=== PATIENT | female | born 1975 | race Caucasian/White ===

== ENCOUNTER → 2019-03-29 | Outpatient (CLI) | payer OTHER ==
[~2019-03-29] MED LIST: BUPR150T6 PO; DICL100G25 TP; DOXY100T PO; HYDR-3240 PO
[2019-03-29 14:58] LABS: MEAN CORPUSCULAR HEMOGLOBIN 38.2 pg (27.0-34.8); MEAN CORPUSCULAR HGB CONC 33.5 g/dL (32.4-35.8); MEAN CORPUSCULAR VOLUME 114.2 fL (80-100); MEAN PLATELET VOLUME 7.3 fL (7.4-10.4); PLATELET COUNT 270 x10^3/uL (130-400); RED BLOOD COUNT 3.65 x10^6/uL (3.82-5.3); RED CELL DISTRIBUTION WIDTH 13.7 % (9.6-15.2)
[2019-03-29 15:07] LABS: CHLORIDE 108 mmol/L (98-107)
[2019-03-29 15:25] LABS: ALANINE AMINOTRANSFERASE 46 U/L (12-78); ALBUMIN 4.3 g/dL (3.4-5.0); ALKALINE PHOSPHATASE 54 U/L (45-117); ANION GAP 5 mmol/L (5-15); BILIRUBIN,TOTAL 0.4 mg/dL (0.2-1.0); CREATININE 1.06 mg/dL (0.55-1.02); TOTAL PROTEIN 7.7 g/dL (6.4-8.2)
[2019-03-29 16:17] LABS: MD YES
[2019-03-29 16:19] LABS: BAND#(MANUAL) 0.07 x10^3/uL; BANDS%(MANUAL) 1 % (0-7); BASOS#(MANUAL) 0.14 x10^3/uL (0-0.1); BASOS% (MANUAL) 2 % (0-1); LYMPH#(MANUAL) 1.87 x10^3/uL (1-3.4); LYMPHS% (MANUAL) 26 % (22-44); MONOS% (MANUAL) 7 % (2-9); SEG#(MANUAL) 4.61 x10^3/uL (1.8-6.8); SEGS% (MANUAL) 64 % (42-75)
[2019-03-29 16:20] LABS: <PLATELET ESTIMATE> ADEQUATE
[2019-03-29 16:21] LABS: SMALL PLATELETS 1+
== END | disposition home or self-care (01) ==
LOC: STAR 13:49
PROVIDERS: ATTEND Surgery
DX: Z01.818 Encounter for other preprocedural examination (principal); F17.200 Nicotine dependence, unspecified, uncomplicated; F12.10 Cannabis abuse, uncomplicated
CPT/HCPCS: 36415; 80053; 85025; 93005

== ENCOUNTER 2019-04-02 13:44 | Day surgery (SDC) | payer OTHER ==
[~2019-04-02] VITALS: Ht 166.4 cm; Wt 74.7 kg
[~2019-04-02 13:44] MED LIST changes: -DOXY100T PO; -HYDR-3240 PO
[2019-04-02] MEDS ORDERED: LACTATED RINGERS 1,000 ML IV SCH (13:53)
[2019-04-02] MEDS ORDERED: PROPOFOL 10 MG/ML, 20ML ONE (14:11)
[2019-04-02] MEDS ORDERED: DEXAMETHASONE 4 MG/ML, 1ML ONE ×2 (14:11)
[2019-04-02] MEDS ORDERED: MIDAZOLAM 1 MG/ML, 2ML ONE (14:11)
[2019-04-02] MEDS ORDERED: ROCURONIUM 10MG/ML,5ML ONE (14:11)
[2019-04-02] MEDS ORDERED: ONDANSETRON 2MG/ML, 2ML ONE (14:11)
[2019-04-02] MEDS ORDERED: CEFAZOLIN 1,000 MG ONE ×2 (14:11)
[2019-04-02] MEDS ORDERED: FENTANYL PF 250 MCG/5ML ONE (14:11)
[2019-04-02 14:51] LABS: HCG UR SG 1.017 (1.003-1.030)
[2019-04-02] MEDS ORDERED: LORazepam 2 MG/ML, 1ML IVPush PRN (15:00)
[2019-04-02] MEDS ORDERED: ACETAMINOPHEN 325 MG TABLET PO PRN ×2 (15:00→20:00)
[2019-04-02] MEDS ORDERED: ONDANSETRON 2MG/ML, 2ML IV PRN ×2 (15:00→20:00)
[2019-04-02] MEDS ORDERED: ALBUTEROL SULFATE 2.5 MG/3 ML NPPB PRN (15:00)
[2019-04-02] MEDS ORDERED: LABETALOL 5MG/ML, 20ML IV PRN (15:00)
[2019-04-02] MEDS ORDERED: MEPERIDINE/PF 25MG/ML,1ML IVPush PRN (15:00)
[2019-04-02] MEDS ORDERED: METOCLOPRAMIDE 5 MG/ML, 2ML IV PRN (15:00)
[2019-04-02] MEDS ORDERED: HYDROmorphone 2 MG/ML, 1ML IVPush PRN (15:00)
[2019-04-02] MEDS ORDERED: hydrALAzine 20 MG/ML, 1ML IV PRN ×2 (15:00→20:00)
[2019-04-02] MEDS ORDERED: ESMOLOL 100 MG/10 ML ONE (15:46)
[2019-04-02] MEDS ORDERED: METOPROLOL 1 MG/ML, 5ML ONE (15:46)
[2019-04-02] MEDS ORDERED: SUGAMMADEX 200 MG/2 ML IVPush ONE (15:46)
[2019-04-02] MEDS ORDERED: OXYcodone 5 MG/5 ML ORAL.SOL UDC ONE (16:35)
[2019-04-02] MEDS ORDERED: FENTANYL PF 100 MCG/2ML ONE (16:35)
[2019-04-02] MEDS ORDERED: BUPIVACAINE/PF 0.5% ONE (16:37)
[2019-04-02] MEDS ORDERED: EPINEPHRINE 1 MG/ML, 1ML ONE (16:37)
[2019-04-02] MEDS: FENTANYL PF 100 MCG/2ML IV PRN ×2 (16:39→16:45)
[2019-04-02] MEDS: OXYcodone 5 MG/5 ML ORAL.SOL UDC PO PRN ×2 (16:43→16:53)
[2019-04-02] MEDS ORDERED: MEPERIDINE/PF 25MG/ML,1ML ONE (16:59)
[2019-04-02] MEDS ORDERED: ACETAMINOPHEN 325 MG TABLET ONE (17:11)
[2019-04-02] MEDS ORDERED: HYDROmorphone 1 MG/ML, 1ML VIAL ONE (17:30)
[2019-04-02 18:23] VITALS: BP 143/91
[2019-04-02] MEDS ORDERED: HYDROcodone/APAP 5/325 TABLET PO PRN (20:00)
[2019-04-02] MEDS ORDERED: ACETAMINOPHEN 650 MG SUPP PR PRN (20:00)
[2019-04-02] MEDS ORDERED: LACTATED RINGERS 500 ML IV PRN (20:00)
[2019-04-02] MEDS ORDERED: morphine SULFATE 10 MG/ML, 1ML IV PRN (20:00)
[2019-04-02] MEDS: SODIUM CHLORIDE FLUSH 10ML SYR IVF SCH (21:00)
[2019-04-02] MEDS: D5%-LACTATED RINGERS 1,000 ML IV SCH (21:04)
[2019-04-02 23:48] VITALS: BP 115/78
[2019-04-03] MEDS: CEFAZOLIN PMX 2GM/50ML 50 ML IVPB SCH ×2 (00:18→07:42)
[2019-04-03] MEDS ORDERED: ENOXAPARIN 40 MG/0.4 ML SQ SCH (00:30)
[2019-04-03 02:16] VITALS: BP 112/79
[2019-04-03] MEDS: D5%-LACTATED RINGERS 1,000 ML IV SCH (07:20)
[2019-04-03 07:31] VITALS: BP 117/79
[2019-04-03] MEDS: SODIUM CHLORIDE FLUSH 10ML SYR IVF SCH (07:50)
[2019-04-03] MEDS ORDERED: BUPROPION XL 150 MG TAB HOMEMEDPO SCH (09:00)
[2019-04-03] MEDS ORDERED: HYDR-3240 PO (09:13)
[2019-04-03] MEDS ORDERED: DOXY100T PO (09:13)
[2019-04-03 10:03] VITALS: BP 145/87
== END 2019-04-03 10:29 | disposition home or self-care (01) ==
LOC: OR 13:44 → 4NE 18:15 → OR 18:28 → 4NE 18:29 → UNDOADMIN 18:29 → DCLOUNGE 04-03 10:17 → 4NE 04-03 10:17 → OR 04-03 10:29 → UNDODISIN 04-03 10:29
PROVIDERS: ATTEND Surgery
DX: T85.79XA Infection and inflammatory reaction due to other internal prosthetic devices, implants and grafts, initial encounter (principal); L02.211 Cutaneous abscess of abdominal wall; J45.909 Unspecified asthma, uncomplicated; F32.9 Major depressive disorder, single episode, unspecified; Z88.8 Allergy status to other drugs, medicaments and biological substances; Y83.8 Other surgical procedures as the cause of abnormal reaction of the patient, or of later complication, without mention of misadventure at the time of the procedure
CPT/HCPCS: 10180; 11008; 36415; 81025; 86850; 86900; 87070; 87075; 87102; 87116; 87205; 87206; 88305; J0171; J0690; J1100; J1170; J1650; J2175; J2250; J2270; J2405; J2704; J3010; J7120; J7121; G0378